=== PATIENT | female | born 1985 | race Caucasian/White ===

== ENCOUNTER 2017-05-28 20:19 | Emergency (ER) | payer OTHER ==
[~2017-05-28] VITALS: Ht 154.9 cm; Wt 93.6 kg
[2017-05-28 20:29] VITALS: Ht 154.9 cm; Wt 93.6 kg
[2017-05-28] MEDS ORDERED: DIPHENHYDRAMINE 50 MG INJ IM ONE (22:00)
[2017-05-28] MEDS ORDERED: predniSONE 20 MG TAB PO ONE (22:00)
[2017-05-28] MEDS ORDERED: FAMOTIDINE 20 MG TAB PO ONE (22:00)
[2017-05-28] MEDS ORDERED: HYDR-842 PO (22:52)
[2017-05-28] MEDS ORDERED: FAMO20TA18 PO (22:52)
[2017-05-28] MEDS ORDERED: EPIN0.3P4 IM (22:52)
[2017-05-28] MEDS ORDERED: PRED20TA PO (22:52)
--- NOTE | 2017-05-28 22:59 | ERD ---
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 He has not had allergies much in her life over the last 30 days she started to get allergic reactions where she gets very itchy and gets redness and spots on her skin. Today she had a reaction where hot water with lemon cleared up completely. She had another reaction when she actually believed her tongue was swelling. She states that that is completely resolved her itching is getting better but she still is red and very itchy. She cannot think of any known changes or allergens. She started spoken with her doctor who recommends allergy testing. ROS All systems reviewed and are negative except as per history of present illness. Medications Home Meds Active Scripts Epinephrine (Epipen 2-Miguel) 0.3 Mg/0.3 Ml Pen.injctr, 0.3 MG IM DIRECTED Y for ALLERGIC REACTION, #1 EA Prov:DEUCE YANES DO 05/28/17 Prednisone* (Prednisone*) 20 Mg Tab, 40 MG PO DAILY, #4 TAB Prov:DEUCE YANES DO 05/28/17 Famotidine* (Famotidine*) 20 Mg Tablet, 20 MG PO BID, #8 TAB Prov:DEUCE YANES DO 05/28/17 Hydroxyzine Hcl* (Atarax*) 25 Mg Tab, 25 MG PO Q6H, #20 TAB Prov:DEUCE YANES DO 05/28/17 PMhx/Soc Medical and Surgical Hx: pt denies Medical Hx, pt denies Surgical Hx Hx Alcohol Use: No Hx Substance Use: No Hx Tobacco Use: No Smoking Status: Never smoker Physical Exam Vitals Vital Signs Date Time Temp Pulse Resp B/P Pulse Ox O2 Delivery O2 Flow Rate FiO2 05/28/17 20:29 99.4 106 18 180/84 100 Physical Exam Const: [] Mild to moderate distress, scratching skin persistently. Head: Atraumatic Eyes: Normal Conjunctiva ENT: Normal External Ears, Nose and Mouth. Tongue is normal size, oropharynx is within normal limits with no edema. Resp: Clear to auscultation bilaterally Cardio: Regular rate and rhythm, no murmurs Skin: No petechiae, erythema and blotches different parts of the trunk extremities and neck. Ext: No cyanosis, or edema Results 24 hrs Current Medications Medications (Trade) Dose Ordered Sig/Eda Route PRN Reason Start Time Stop Time Status Last Admin Dose Admin Diphenhydramine HCl (Benadryl) 50 mg ONCE ONCE IM 05/28/17 22:00 05/28/17 22:01 DC 05/28/17 22:13 Prednisone (Prednisone) 60 mg ONCE ONCE PO 05/28/17 22:00 05/28/17 22:01 DC 05/28/17 22:13 Famotidine (Pepcid) 20 mg ONCE ONCE PO 05/28/17 22:00 05/28/17 22:01 DC 05/28/17 22:13 Procedures/MDM Allergic reaction appears to be moderate and possibly was severe as her tongue was swelling. She has no shortness of breath now has clear lungs had erythema. She was given 50 mg of IM Benadryl as well as a p.o. Pepcid and p.o. 60 mg prednisone tablet. She is feeling much better erythema has disappeared. We will discharge her with hydroxyzine, Pepcid, prednisone for 4 days. I am also discharge with EpiPen 2 pack because she had some tongue swelling and this may save her life if she has more severe allergic reaction. Also told her she should follow through the allergy testing and call first thing on Tuesday to arrange that through her primary care doctor. Return precautions. Departure Diagnosis: Primary Impression: Allergic reaction Condition: Stable Patient Instructions: Allergic Reaction, Other (General) Additional Instructions: Call your primary care doctor TOMORROW for an appointment during the next 1-2 days.See the doctor sooner or return here if your condition worsens before your appointment time. DEUCE YANES DO May 28, 2017 22:59
== END 2017-05-28 23:18 | disposition home or self-care (01) ==
LOC: FTE 20:19
DX: L50.0 Allergic urticaria (principal)
CPT/HCPCS: 96372; J1200; J7512; Z7502; Z7610

== ENCOUNTER 2017-08-15 08:38 | Emergency (ER) | END 2017-08-15 10:10 | disposition home or self-care (01) ==